=== PATIENT | male | born 1955 | race Caucasian/White ===

== ENCOUNTER 2018-04-28 13:11 | Outpatient (CLI) | payer MEDICARE, BC ==
--- NOTE | 2018-04-28 15:12 | CT Report ---
Procedure Date: 04/28/2018 Accession Number: [id number] / [id number] Procedure: CT - Chest/Lung Screen Low Dose W/O CPT Code: FULL RESULT: EXAM CT LUNG SCREEN EXAM DATE: 04/28/2018 02:08 PM. HISTORY: 63-year-old patient with smoking history. COMPARISON: CHEST SCREEN LOW DOSE W/O 05/06/2016 10:37 AM. TECHNIQUE: CT examination of the entire thorax without contrast was performed using low-dose technique. Thin section coronal, axial, sagittal and MIP axial images were obtained. In accordance with CT protocol optimization, one or more of the following dose reduction techniques were utilized for this exam: automated exposure control, adjustment of mA and/or KV based on patient size, or use of iterative reconstructive technique. FINDINGS: Nodules: Right upper lobe: None. Right middle lobe: None. Right lower lobe: 1. 3 mm solid nodule series 4 image 111 unchanged. 2. 4 mm solid nodule image 116 unchanged. Left upper lobe: None. Left lower lobe: 3. 4 mm solid nodule image 113 unchanged. Emphysema: No discrete emphysema cyst. Pleura: No pleural effusion or calcification. Aorta: Thoracic aorta is normal in caliber. There is mild calcification of the aortic valve. Mediastinum: Heart size is normal. No pericardial effusion. No lymphadenopathy. Coronary calcifications: None. Other pulmonary findings: None. Other extrapulmonary findings: None. IMPRESSION: Lung-RADS ASSESSMENT CATEGORY: 2 - benign appearance or behavior Probability of malignancy: Less than 1% RECOMMENDATION: 12 month follow-up low-dose noncontrast CT screening of the chest [facility]
== END 2018-04-28 13:12 | disposition home or self-care (01) ==
LOC: DI 13:11
PROVIDERS: ATTEND Family Medicine
DX: Z12.2 Encounter for screening for malignant neoplasm of respiratory organs (principal); Z87.891 Personal history of nicotine dependence; I77.810 Thoracic aortic ectasia; I51.7 Cardiomegaly; R91.8 Other nonspecific abnormal finding of lung field
CPT/HCPCS: 93306; G0297

== ENCOUNTER 2019-08-10 14:51 | Outpatient (CLI) | payer MEDICARE, BC ==
--- NOTE | 2019-08-10 15:38 | CT Report ---
Reason: SCREENING FOR LUNG CA Procedure Date: 08/10/2019 Accession Number: [id number] / [id number] Procedure: CT - Low Dose Lung Cancer Screen CPT Code: Final Report FULL RESULT: EXAM CT LUNG SCREEN EXAM DATE: 08/10/2019 03:03 PM. HISTORY: 65-year-old patient with [id number] smoking history. Currently smoking: Unknown. COMPARISON: 04/28/2018. TECHNIQUE: CT examination of the entire thorax without contrast was performed using low-dose technique. Thin section coronal, axial, sagittal and MIP axial images were obtained. In accordance with CT protocol optimization, one or more of the following dose reduction techniques were utilized for this exam: automated exposure control, adjustment of mA and/or KV based on patient size, or use of iterative reconstructive technique. FINDINGS: Nodules: Right upper lobe: None. Right middle lobe: 1. 4 mm irregularly shaped nodule (4/118) unchanged. Right lower lobe: 1. 3 mm solid nodule (4/110) unchanged. 2. 5 x 5 mm nodule (4/114) not significantly changed. 3. 4 mm nodule (4/106) not significantly changed. Left upper lobe: None. Left lower lobe: 1. 4 mm nodule (4/112) unchanged. Emphysema: None. Pleura: Unremarkable. Aorta: The ascending aorta is mildly prominent measuring up to 4.2 cm similar to prior exam. The descending thoracic aorta is normal in caliber. Mediastinum: Unremarkable. Coronary calcifications: None. Other pulmonary findings: None. Other extrapulmonary findings: None. IMPRESSION: Lung-RADS ASSESSMENT CATEGORY: 2 - benign appearance. No change in several pulmonary nodules. Probability of malignancy: Less than 1%. RECOMMENDATION: Twelve-month low-dose CT follow-up recommended. [facility]
== END 2019-08-10 14:52 | disposition home or self-care (01) ==
LOC: DI 14:51
PROVIDERS: ATTEND Family Medicine
DX: Z12.2 Encounter for screening for malignant neoplasm of respiratory organs (principal); R91.8 Other nonspecific abnormal finding of lung field; Z87.891 Personal history of nicotine dependence

== ENCOUNTER 2019-08-27 10:22 | Outpatient (CLI) | payer MEDICARE, BC | END 2019-08-27 10:23 | disposition home or self-care (01) | LOC: DI 10:22 | PROVIDERS: ATTEND Internal Medicine Cardiovascular Disease | DX: I77.810 Thoracic aortic ectasia (principal); I34.0 Nonrheumatic mitral (valve) insufficiency; I51.7 Cardiomegaly | CPT/HCPCS: 93306 ==

== ENCOUNTER 2019-09-10 16:42 | Outpatient (CLI) | payer MEDICARE, BC ==
--- NOTE | 2019-09-11 14:02 | Ultrasound Report ---
Reason: INGUINAL PAIN Procedure Date: 09/10/2019 Accession Number: [id number] / [id number] Procedure: US - Pelvic Limited or F/U CPT Code: Final Report FULL RESULT: EXAM: INGUINAL ULTRASOUND EXAM DATE: 09/10/2019 05:30 PM. CLINICAL HISTORY: Inguinal pain. COMPARISON: None. TECHNIQUE: Real-time sonographic imaging of the inguinal canals and vascular structures, including color-flow, was performed by the excellence leader. Multiple circulation sales representative static images were saved for review. FINDINGS: Hernia: None identified with or without Valsalva. Soft Tissues: Normal. No fluid collections or adenopathy. Other: None. IMPRESSION: Normal. No inguinal hernia evident. [facility]
== END 2019-09-10 16:43 | disposition home or self-care (01) ==
LOC: DI 16:42
PROVIDERS: ATTEND Nurse Practitioner Family
DX: R10.2 Pelvic and perineal pain (principal)
CPT/HCPCS: 76857